=== PATIENT | female | born 1950 | race African-American/Black ===

== ENCOUNTER 2017-03-20 09:14 | Emergency (ER) | payer OTHER ==
[~2017-03-20] VITALS: Ht 157.5 cm; Wt 61.2 kg
[~2017-03-20 09:14] MED LIST: CROLOM 4% OPTH SO4 % OP; FAMOTIDINE 20 M20 MG PO; PREDNISONE 20 M20 MG PO
[2017-03-20 11:03] VITALS: BP 108/69
== END 2017-03-20 11:05 | disposition home or self-care (01) ==
LOC: ER 09:14
DX: T78.40XA Allergy, unspecified, initial encounter (principal); X58.XXXA Exposure to other specified factors, initial encounter; J44.9 Chronic obstructive pulmonary disease, unspecified; Z88.0 Allergy status to penicillin; Z88.2 Allergy status to sulfonamides